=== PATIENT | male | born 1980 | race Caucasian/White ===

== ENCOUNTER 2018-10-18 08:29 | Emergency (ER) | payer OTHER ==
[~2018-10-18] VITALS: Ht 167.6 cm; Wt 71.4 kg
[2018-10-18 08:36] VITALS: BP 121/88; PULSE 65; RESP 18; Ht 167.6 cm; Wt 71.4 kg
[2018-10-18] MEDS ORDERED: KETOROLAC 30 MG INJ IM STA (09:41)
[2018-10-18] MEDS ORDERED: METHOCARBAMOL 750 MG TAB PO ONE (10:00)
[2018-10-18] MEDS ORDERED: DEXAMETHASONE 10 MG/ML 1 ML INJ IM ONE (10:00)
[2018-10-18] MEDS ORDERED: ACET-141 PO (11:06)
[2018-10-18] MEDS ORDERED: IBUP-1542 PO (11:06)
[2018-10-18] MEDS ORDERED: METH750T93 PO (11:06)
--- NOTE | 2018-10-18 11:10 | ERD ---
ER Documentation Chief Complaint Chief Complaint lower back pain x 5 days HPI 37-year-old male presents for low back pain x5 days. 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 He took some [place] with some relief. He states that the pain is 4 out of 10, intermittent, worse with movement. Pain is described as sharp and nonradiating. Denies loss of bowel bladder function. Otherwise no other modifying factor noted. No other treatments tried at home. Denies history of cancer, denies recent procedure, denies recent infection. ROS All systems reviewed and are negative except as per history of present illness. Medications Home Meds Active Scripts Acetaminophen* (Acetaminophen*) 500 MG Extra Strength Tablet, 500 MG PO Q4H PRN for PAIN AND OR ELEVATED TEMP, #30 TAB Prov:ARIE VILLANUEVA 10/18/18 Ibuprofen* (Motrin*) 600 Mg Tab, 600 MG PO Q6H PRN for PAIN AND OR ELEVATED TEMP, #30 TAB Prov:ARIE VILLANUEVA 10/18/18 Methocarbamol* (Robaxin*) 750 Mg Tablet, 750 MG PO TID PRN for MUSCLE SPASMS, #30 TAB Prov:ARIE VILLANUEVA 10/18/18 Allergies Allergies: Coded Allergies: No Known Allergy (Unverified , 10/18/18) PMhx/Soc History of Surgery: Yes (abd) Anesthesia Reaction: No Hx Neurological Disorder: No Hx Respiratory Disorders: No Hx Cardiac Disorders: No Hx Psychiatric Problems: No Hx Miscellaneous Medical Probl: No Hx Alcohol Use: Yes Hx Substance Use: No Hx Tobacco Use: No Smoking Status: Never smoker Physical Exam Vitals Vital Signs Date Temp Pulse Resp B/P (MAP) Pulse Ox O2 O2 Flow FiO2 Time Delivery Rate 10/18/18 97.7 65 18 121/88 95 08:36 (99) Physical Exam Const: No acute distress Neck: Full range of motion. No meningismus. no midline tenderness Resp: Clear to auscultation bilaterally Cardio: Regular rate and rhythm, no murmurs, bilateral radial and dorsalis pedis pulses intact and equal Abd: Soft, non tender, non distended. Normal bowel sounds, no abdominal bruit noted Skin: No petechiae or rashes Back: no point tenderness, bilateral paravertebral muscle tenderness palpation over the lumbar area Ext: No cyanosis, or edema, 5/5 muscle strength bilateral upper and lower extremities Neur: Awake and alert, bilateral upper and lower extremity sensation intact Psych: Normal Mood and Affect Results 24 hrs Current Medications Medications Dose Sig/Jose Carlos Start Time Status Last (Trade) Ordered Route PRN Stop Time Admin Dose Reason Admin 10 mg ONCE ONCE 10/18/18 DC 10/18/18 Dexamethasone IM 10:00 09:54 (Decadron) 10/18/18 10:01 Ketorolac 30 mg ONCE STAT 10/18/18 DC 10/18/18 Tromethamine IM 09:41 09:54 (Toradol) 10/18/18 09:43 750 mg ONCE ONCE 10/18/18 DC 10/18/18 Methocarbamol PO 10:00 09:53 (Robaxin) 10/18/18 10:01 Procedures/MDM Medical Decision Making: Differential diagnosis includes but not limited to muscle strain, ligamentous sprain, epidural abscess, osteomyelitis, osteoarthritis, herniated disc, compression fracture, aortic aneurysm, kidney stone, pyelonephritis, pancreatitis. Patient appeared well on physical examination. Nontoxic appearing. Patient appeared well on physical examination. Nontoxic appearing. No recent back procedure, therefore low suspicion for epidural abscess No recent infection, therefore low suspicion for osteomyelitis No trauma, therefore low suspicion for fracture No chest pain, abdominal pain and no pulse deficits noted, therefore low suspicion for aortic dissection or pancreatitis No flank pain or fever to suggest pyelonephritis or kidney stone Patient possibly has muscle strain of his low back ED course: Patient was given Toradol, Decadron, Robaxin. Symptoms improved with treatment. Prescription(s): Patient given prescription for supportive medication(s). Patient advised to follow up with PCP in 1-2 days. Patient advised to return to ED for new or worsening symptoms. Patient stable on discharge from the ED. Disclaimer: Inadvertent spelling and grammatical errors are likely due to EHR/dictation software use and do not reflect on the overall quality of patient care. Also, please note that the electronic time recorded on this note does not necessarily reflect the actual time of the patient encounter. Departure Diagnosis: Primary Impression: Back pain Back pain location: low back pain Chronicity: unspecified Back pain laterality: unspecified Sciatica presence: unspecified whether sciatica present Qualified Codes: M54.5 - Low back pain Condition: Fair Patient Instructions: Back Pain (Acute Or Chronic) Referrals: COMM[facility] YOU HAVE RECEIVED A MEDICAL SCREENING EXAM AND THE RESULTS INDICATE THAT YOU DO NOT HAVE A CONDITION THAT REQUIRES URGENT TREATMENT IN THE EMERGENCY DEPARTMENT. FURTHER EVALUATION AND TREATMENT OF YOUR CONDITION CAN WAIT UNTIL YOU ARE SEEN IN YOUR DOCTORS OFFICE WITHIN THE NEXT 1-2 DAYS. IT IS YOUR RESPONSIBILITY TO MAKE AN APPOINTMENT FOR FOLOW-UP CARE. IF YOU HAVE A PRIMARY DOCTOR --you should call your primary doctor and schedule an appointment IF YOU DO NOT HAVE A PRIMARY DOCTOR YOU CAN CALL OUR PHYSICIAN REFERRAL HOTLINE AT IF YOU CAN NOT AFFORD TO SEE A PHYSICIAN YOU CAN CHOSE FROM THE FOLLOWING [facility] [address] [facility]. [facility] [address] [facility] [facility] [address] [facility]. [facility] [address] [facility] [address] [facility]. [facility]. [address] Additional Instructions: Call your primary care doctor TOMORROW for an appointment during the next 1-2 days.See the doctor sooner or return here if your condition worsens before your appointment time. ARIE VILLANUEVA DO Oct 18, 2018 11:10
== END 2018-10-18 11:18 | disposition home or self-care (01) ==
LOC: FTE 08:29
DX: M54.5 Low back pain (principal)
CPT/HCPCS: 96372; J1100; J1885; Z7502; Z7610